=== PATIENT | female | born 1945 | race Two or more races ===

== ENCOUNTER 2018-01-20 05:46 | Emergency (ER) | payer BC, OTHER ==
[~2018-01-20] VITALS: Ht 162.6 cm; Wt 72.6 kg
[2018-01-20 05:49] VITALS: Ht 162.6 cm; Wt 72.6 kg
[2018-01-20 07:35] VITALS: BP 127/80
== END 2018-01-20 07:35 | disposition home or self-care (01) ==
LOC: ED 05:46
DX: K21.9 Gastro-esophageal reflux disease without esophagitis (principal); K59.00 Constipation, unspecified; E07.9 Disorder of thyroid, unspecified; E11.9 Type 2 diabetes mellitus without complications; E78.00 Pure hypercholesterolemia, unspecified; Z88.5 Allergy status to narcotic agent; Z88.6 Allergy status to analgesic agent; Z88.0 Allergy status to penicillin